=== PATIENT | female | born 1985 | race African-American/Black ===

== ENCOUNTER 2018-09-04 14:15 | Inpatient (IN) | payer MEDICAID ==
[~2018-09-04] VITALS: Ht 165.1 cm; Wt 134.7 kg
[2018-09-04 14:44] VITALS: BP 110/78
--- NOTE | 2018-09-04 16:21 | NUR ---
PT AMBULATED TO BED 2 IN NO APPEARENT DISTRESS.
--- NOTE | 2018-09-04 16:21 | NUR ---
PATIENT AMBULATED TO BED 2 AT THIS TIME.
--- NOTE | 2018-09-04 16:25 | NUR ---
32 YO F BIB BY SELF AMBULATORY WITH STEADY GATE. PT STATES TO HAVE ACHES TO LEGS, HIPS AND ARMS. PT STATES TO HAVE SICKLE CELL. PT STATES TO BE FROM [facility] VISITING FAMILY SHE GOT HER THURSDAY VIA AIRPLANE. JAMIL N/V/D. ER ME MADE AWARE OF PT STATUS. GALLBLADDER REMOVED 2006, APPENDECTOMY 2008, SPLEENECTOMY 2010, HISTORECTOMY 2012. PT STATES TO HAVE A DVT IN L LEG. HX: SICKLE CELL RX: LOVENOX, SEROQUEL, WARFRIN, DILAUDID, PERCOCET
[2018-09-04] MEDS ORDERED: ALBUTEROL SULFATE/IPRATROPIU 3 ML SOL IH ONE (16:45)
[2018-09-04] MEDS ORDERED: diphenhydrAMINE 50 MG/ML VIAL IVP ONE ×4 (16:45→21:55)
[2018-09-04] MEDS ORDERED: HYDROmorphone 1 MG/ML AMP IVP ONE ×4 (16:45→21:55)
--- NOTE | 2018-09-04 17:40 | NUR ---
LAB WAS CALLED THAT BLOOD WORK IS READY AND AT BEDSIDE.
[2018-09-04 17:49] LABS: BASOPHILS % (AUTO) 0.8 % (0.0-2.0); EOSINOPHILS % (AUTO) 0.9 % (0.0-4.0); HEMATOCRIT 27.3 % (36-48); HEMOGLOBIN 8.4 g/dL (12.0-16.0); LYMPHOCYTES # (AUTO) 1.7 K/uL (2.5-16.5); LYMPHOCYTES % (AUTO) 32.7 % (20.5-51.1); MEAN CORPUSCULAR HEMOGLOBIN 20 pg (27-31); MEAN CORPUSCULAR HGB CONC 31 g/dL (33-37); MEAN CORPUSCULAR VOLUME 63.4 fL (80-94); MONOCYTES # (AUTO) 0.3 K/uL (0.8-1.0); MONOCYTES % (AUTO) 6.2 % (1.7-9.3); NEUTROPHILS # (AUTO) 3.1 K/uL (1.8-7.7); NEUTROPHILS % (AUTO) 59.4 % (42.2-75.2); PLATELET COUNT (AUTO) 377 K/uL (140-450); RED BLOOD CELL COUNT(AUTO) 4.31 MIL/uL (4.20-5.40); RED CELL DISTRIBUTION WIDTH 19.1 % (11.6-13.7); WHITE BLOOD COUNT (AUTO) 5.3 K/uL (4.8-10.8)
[2018-09-04 18:06] LABS: CARBON DIOXIDE 23.3 mmol/L (21-32); CREATININE 0.6 mg/dL (0.6-1.3); POTASSIUM 3.3 mmol/L (3.5-5.1)
[2018-09-04 18:10] LABS: PROTHROMBIN TIME 10.8 secs (10.8-13.4)
[2018-09-04 18:12] LABS: ALBUMIN 3.5 g/dL (3.4-5.0); TOTAL BILIRUBIN 0.4 mg/dL (0.0-1.0)
[2018-09-04] MEDS ORDERED: HYDROmorphone 1 MG/ML AMP ONE (19:03)
--- NOTE | 2018-09-04 19:15 | NUR ---
PT SITTING UP IN BED, PAIN LEVEL 10. REQUESTING MORE PAIN MEDICATION ER MD MADE KNOWN.
[2018-09-04] MEDS ORDERED: KETOROLAC 30 MG/ML VIAL IVP ONE (20:00)
--- NOTE | 2018-09-04 20:09 | NUR ---
Dr. Hernandez evaluating patient at bedside.
--- NOTE | 2018-09-04 20:15 | NUR ---
PT REQUUESTING PAIN MEDICATION. PAIN LEVEL 10/10. ER MD MADE KNOWN.
[2018-09-04] MEDS ORDERED: MORPHINE SULFATE 4 MG/ML SYR IVP ONE (20:35)
--- NOTE | 2018-09-04 20:51 | NUR ---
RADIOLOGY MADE AWARE PT READY FOR CT PER DR. ELLIS
--- NOTE | 2018-09-04 21:08 | NUR ---
CHAINSTITCH ZIPPER SETTER AT BEDSIDE
--- NOTE | 2018-09-04 21:08 | NUR ---
PT TAKEN TO CT
[2018-09-04] MEDS ORDERED: ZOLPIDEM 5 MG TAB PO PRN (21:40)
[2018-09-04] MEDS ORDERED: NITROGLYCERIN 0.4 MG TAB SL PRN (21:40)
[2018-09-04] MEDS ORDERED: LORazepam 2 MG/ML VIAL IM/IVP PRN (21:40)
[2018-09-04] MEDS ORDERED: ACETAMINOPHEN 325 MG TAB PO PRN (21:40)
[2018-09-04] MEDS ORDERED: DOCUSATE SODIUM 100 MG GELCAP PO PRN (21:40)
[2018-09-04] MEDS ORDERED: ONDANSETRON 4 MG/2 ML VIAL IM/IVP PRN (21:40)
[2018-09-04] MEDS ORDERED: MORPHINE SULFATE 2 MG/ML SYR IVP PRN (21:40)
--- NOTE | 2018-09-04 21:45 | NUR ---
PT REQUESTED FOOD, SANDWICH ORDERED, PENDING ADMIT. VITALS STABLE.
[2018-09-04] MEDS ORDERED: ALBUTEROL SULFATE/IPRATROPIU 3 ML SOL IH PRN (21:50)
[2018-09-04] MEDS ORDERED: HYDR500C PO (22:16)
[2018-09-04] MEDS ORDERED: HYDR4TAB6 PO (22:16)
[2018-09-04] MEDS ORDERED: FOLI1TAB90 PO (22:16)
[2018-09-04] MEDS ORDERED: ACET-5636 PO (22:16)
[2018-09-04] MEDS ORDERED: BEN50 PO (22:16)
[2018-09-04] MEDS ORDERED: WARF-18 PO (22:16)
[2018-09-04] MEDS ORDERED: LOV40I SUBQ (22:16)
[2018-09-04] MEDS ORDERED: QUET50TA PO (22:16)
[2018-09-04] MEDS ORDERED: NON-FORMULARY ITEM (Oxycodone HCl/Acetaminophen (Percocet 10-325 mg Tablet) 1 TAB) PO SCH (22:20)
[2018-09-04] MEDS ORDERED: HYDROMORPHONE HCL PO SCH (22:20)
--- NOTE | 2018-09-04 22:25 | NUR ---
ADMITTED PT FROM ER VIA MATTI. AAOX4. NO C/O PAIN AT THIS TIME. NO RESP DISTRESS NOTED. ON O2 AT 2L/MIN VIA NC. PT IS AMBULATORY. SKIN INTACT. IV TO RIGHT AC#20G AND RIGHT SHOULDER #20G, PATENT AND INTACT. ORIENTED PT TO ROOM. DISCUSSED PLAN OF CARE, PT VERBALIZED UNDERSTANDING. CALL LIGHT WITHIN REACH.
--- NOTE | 2018-09-04 22:25 | NUR ---
Pt report given to RICK ANGELES. Transfer of care at this time.VITALS STABLE.
--- NOTE | 2018-09-04 22:25 | NUR ---
Patient will be admitted to care of DR. KAISER. Admited to TELEMETRY. Will go to room 124A. Belongings list completed. Report to RICK ANGELES.VITALS STABLE.
[2018-09-04 22:45] LABS: CHOL/HDL RATIO 3.6 (1-4.5); MAGNESIUM 1.9 mg/dL (1.8-2.4); PHOSPHORUS 3.4 mg/dL (2.5-4.9); THYROID STIMULATING HORMONE 0.29 uIU/mL (0.34-3.74)
[2018-09-04 23:00] VITALS: BP 121/77
[2018-09-04] MEDS: NACL 0.9% 1,000 ML IV SCH (23:00)
[2018-09-04] MEDS ORDERED: HYDROmorphone 1 MG/ML AMP IVP SCH (23:00)
[2018-09-04] MEDS ORDERED: HYDROmorphone 2 MG TAB PO PRN ×2 (23:10→23:15)
[2018-09-04] MEDS ORDERED: QUEtiapine FUMARATE 25 MG TAB PO SCH (23:30)
[2018-09-04] MEDS ORDERED: POTASSIUM CHLORIDE 10 MEQ TABER PO SCH (23:30)
--- NOTE | 2018-09-04 23:30 | NUR ---
PT ASKED FOR SNACK. SNACK PROVIDED. ALL NEEDS MET AT THIS TIME. CALL LIGHT WITHIN REACH.
[2018-09-05] VITALS: BP 126/78
--- NOTE | 2018-09-05 00:15 | NUR ---
PT RESTING IN BED. REMINDED PT TO CALL NURSE/ME WHEN SHE WANTS TO GO TO THE RESTROOM BEC WE NEED URINE SAMPLE FOR URINALYSIS PROFILE. PT VERBALIZED UNDERSTANDING.
--- NOTE | 2018-09-05 01:20 | NUR ---
CALLED RADIOLOGY FOR PT'S VENOUS US [facility]ADA. LOWER EXT. SPOKE WITH RIKA. PER RIKA, IF ULTRASOUND ORDER IS ROUTINE, TECH WILL DO IT TOMORROW MORNING. DR. CROCKER MADE AWARE AND SHE SAID IT'S OKAY.
--- NOTE | 2018-09-05 01:38 | NUR ---
PT REFUSED BLOOD DRAW FOR TROPONIN. PT STATED SHE WANTED TO SLEEP. DR. CROCKER MADE AWARE.
--- NOTE | 2018-09-05 03:50 | NUR ---
PT SLEEPING BUT EASILY AROUSABLE. NO S/S OF PAIN OR SOB. CALL LIGHT WITHIN REACH.
[2018-09-05 04:00] VITALS: BP 114/60
--- NOTE | 2018-09-05 04:35 | NUR ---
PT REFUSED EKG, TOLD ME TO COME BACK, BECAUSE SHE NEEDS TO GO TO BATHROOM
[2018-09-05] MEDS ORDERED: HYDROmorphone 1 MG/ML AMP IVP ONE (05:00)
--- NOTE | 2018-09-05 05:20 | NUR ---
PT REFUSED AGAIN, SHE WANTS ME TO LEAVE THE ROOM, RN NOTIFIED
[2018-09-05] MEDS ORDERED: ALBUTEROL SULFATE/IPRATROPIU 3 ML SOL IH SCH (06:00)
--- NOTE | 2018-09-05 06:30 | NUR ---
PT C/O PAIN 04/13. DILAUDID 0.5 MG GIVEN ORDERED.
[2018-09-05] MEDS ORDERED: HYDROmorphone 1 MG/ML AMP ONE (06:33)
--- NOTE | 2018-09-05 07:15 | NUR ---
ENDORSED PT TO DAY SHIFT NURSE. PT IN STABLE CONDITION.
--- NOTE | 2018-09-05 07:20 | NUR ---
PT REPORT RECEIVED AT BEDSIDE FROM NIGHT NURSE. PT IS RECEIVING A BREATHING TX AT THIS TIME. PT IS ALERT AND AWAKE, NO S/S OF DISTRESS OR SOB NOTED. NO C/O CHEST PAIN AT THIS TIME. PT IS ON 2L O2 NC. SKIN IS INTACT. IV SITES NOTED ON R AC AND R SHOULDER, BOTH 20 GAUGE. 0.9% NS INFUSING AT 60 ML/HR. PT IS AMBULATORY. CALL LIGHT WITHIN REACH, WILL CONTINUE TO MONITOR.
[2018-09-05 07:28] LABS: EOSINOPHILS # (AUTO) 0.1 K/uL (0-0.4); EOSINOPHILS % (AUTO) 2.4 % (0.0-4.0); HEMATOCRIT 28.3 % (36-48); HEMOGLOBIN 8.7 g/dL (12.0-16.0); LYMPHOCYTES # (AUTO) 1.4 K/uL (2.5-16.5); LYMPHOCYTES % (AUTO) 32.3 % (20.5-51.1); MEAN CORPUSCULAR HEMOGLOBIN 20 pg (27-31); MEAN CORPUSCULAR HGB CONC 31 g/dL (33-37); MEAN CORPUSCULAR VOLUME 64.3 fL (80-94); MONOCYTES # (AUTO) 0.3 K/uL (0.8-1.0); MONOCYTES % (AUTO) 7.1 % (1.7-9.3); NEUTROPHILS # (AUTO) 2.4 K/uL (1.8-7.7); NEUTROPHILS % (AUTO) 57.2 % (42.2-75.2); PLATELET COUNT (AUTO) 355 K/uL (140-450); RED CELL DISTRIBUTION WIDTH 18.8 % (11.6-13.7); WHITE BLOOD COUNT (AUTO) 4.3 K/uL (4.8-10.8)
[2018-09-05 07:57] LABS: PROTHROMBIN TIME 10.1 secs (10.8-13.4)
[2018-09-05 08:00] VITALS: BP 115/64
[2018-09-05 08:26] LABS: ANION GAP 10.9 (8-16); CARBON DIOXIDE 26.4 mmol/L (21-32); MAGNESIUM 1.9 mg/dL (1.8-2.4); PHOSPHORUS 4.2 mg/dL (2.5-4.9); POTASSIUM 3.3 mmol/L (3.5-5.1)
[2018-09-05 08:27] LABS: CREATININE 0.6 mg/dL (0.6-1.3)
[2018-09-05] MEDS: LISINOPRIL 5 MG TAB PO SCH (09:00)
[2018-09-05] MEDS: ENOXAPARIN 120 MG/0.8 ML SYR SUBQ SCH ×2 (09:00→21:13)
[2018-09-05] MEDS: ENOXAPARIN 30 MG/0.3 ML SYR SUBQ SCH ×2 (09:00→21:14)
[2018-09-05] MEDS ORDERED: NON-FORMULARY ITEM (Folic Acid 1 MG) PO SCH (09:00)
[2018-09-05] MEDS: METOPROLOL 25 MG TAB PO SCH ×2 (09:00→21:15)
[2018-09-05] MEDS ORDERED: ENOXAPARIN 40 MG/0.4 ML SYR SUBQ SCH (09:00)
[2018-09-05] MEDS: FOLIC ACID 1 MG TAB PO SCH (09:50)
[2018-09-05] MEDS: PANTOPRAZOLE 40 MG TABEC PO SCH (09:51)
[2018-09-05] MEDS: ASCORBIC ACID 500 MG TAB PO SCH (09:51)
[2018-09-05] MEDS: HYDROXYUREA 500 MG CAP PO SCH ×3 (09:51→16:33)
[2018-09-05] MEDS: FERROUS SULFATE 325 MG TABEC PO SCH (09:51)
[2018-09-05] MEDS: ASPIRIN 81 MG TAB.CHEW PO SCH (09:58)
--- NOTE | 2018-09-05 11:15 | NUR ---
PT IS ALSEEP IN BED, NO S/S OF DISTRESS OR SOB NOTED, NO C/O CHEST PAIN. PT IS ON ROOM AIR AT THIS TIME SATTING 98%. CALL LIGHT WITHIN REACH. WILL CONTINUE TO MONITOR.
--- NOTE | 2018-09-05 11:45 | NUR ---
PATIENT HAS BEEN SCREENED AND CATEGORIZED HIGH NUTRITION RISK. PATIENT WILL BE SEEN WITHIN 1-2 DAYS OF ADMISSION. 09/05/18 09/06/18 NIYAH DIXON MBA, RD
[2018-09-05 12:00] VITALS: BP 117/73
[2018-09-05] MEDS ORDERED: POTASSIUM CHLORIDE 10 MEQ TABER PO SCH (13:00)
[2018-09-05] MEDS: ALBUTEROL SULFATE/IPRATROPIU 3 ML SOL IH SCH ×2 (13:36→19:29)
[2018-09-05] MEDS: HYDROcodone/APAP 5/325 MG 1 TAB TAB PO PRN ×2 (13:53→19:47)
[2018-09-05] MEDS: NACL 0.9% 1,000 ML IV SCH (14:17)
--- NOTE | 2018-09-05 14:45 | NUR ---
PT IS REFUSING THE BILATERAL LE ULTRASOUND, TELLING US TECH TO COME BACK LATER. THIS IS THE SECOND TIME SHE HAS REFUSED IT. US TECH WILL TRY AGAIN LATER.
[2018-09-05 16:00] VITALS: BP 112/70
[2018-09-05] MEDS ORDERED: WARFARIN 5 MG TAB PO SCH (17:00)
--- NOTE | 2018-09-05 19:00 | NUR ---
PT HAVING BLE ULTRASOUND AT THIS TIME.
--- NOTE | 2018-09-05 19:15 | NUR ---
REPORT GIVEN AT BEDSIDE TO POTATO SORTER NURSE. PT ENDORSED IN STABLE CONDITION.
--- NOTE | 2018-09-05 19:16 | NUR ---
RECEIVED REPORT FROM DAY SHIFT NURSE. PT IN BED, AAOX4. PT HAVING BLE ULTRASOUND AT THIS TIME. NO C/O PAIN OR SOB. IV TO RIGHT SHOULDER, PATENT AND INTACT. SAFETY PRECAUTION IN PLACE. CALL LIGHT WITHIN REACH.
--- NOTE | 2018-09-05 19:47 | NUR ---
PT C/O LEG PAIN 03/14. NORCO 5/325 MG GIVEN.
[2018-09-05 20:00] VITALS: BP 121/64
[2018-09-05] MEDS ORDERED: KETOROLAC 30 MG/ML VIAL IVP PRN (20:25)
[2018-09-05] MEDS ORDERED: ATORVASTATIN 20 MG TAB PO SCH (21:00)
[2018-09-05] MEDS ORDERED: QUEtiapine FUMARATE 25 MG TAB PO SCH ×2 (21:00)
--- NOTE | 2018-09-05 21:00 | NUR ---
DR. CROCKER MADE AWARE THAT LOVENOX WAS HELD THIS MORNING AND IF SHE WANTED ME TO GIVE IT OR NOT FOR TONIGHT'S DOSE. PER MD, GIVE LOVENOX 150 MG SUBQ DUE AT 2100 .
--- NOTE | 2018-09-05 21:22 | NUR ---
PT STILL COMPLAINING OF PAIN. DR. CROCKER MADE AWARE. ORDERED TO GIVE MORPHINE 1 MG IVP.
--- NOTE | 2018-09-05 23:30 | NUR ---
PT LYING IN BED, WATCHING ON HER CELLPHONE. NO C/O PAIN. ALL NEEDS MET AT THIS TIME. CALL LIGHT WITHIN REACH.
[2018-09-06] VITALS: BP 100/56
--- NOTE | 2018-09-06 01:03 | NUR ---
REMINDED PT TO COLLECT URINE FOR URINE TEST WHEN SHE WAS IN THE BATHROOM. PT SAID YES BUT WHEN SHE WENT OUT SHE SAID SHE FORGOT ABOUT IT. REMINDED PT TO COLLECT URINE NEXT TIME SHE GOES TO THE BATHROOM. PT VERBALIZED UNDERSTANDING.
--- NOTE | 2018-09-06 03:20 | NUR ---
PT SLEEPING BUT EASILY WAKES UP. RESP EVEN AND UNLABORED. NO S/S OF PAIN OR DISCOMFORT.
[2018-09-06 04:00] VITALS: BP 100/58
--- NOTE | 2018-09-06 05:45 | NUR ---
PT SLEEPING, EASILY AROUSABLE. NO S/S OF PAIN OR SOB. CALL LIGHT WITHIN REACH.
[2018-09-06] MEDS: NACL 0.9% 1,000 ML IV SCH (06:57)
[2018-09-06] MEDS: ALBUTEROL SULFATE/IPRATROPIU 3 ML SOL IH SCH ×4 (07:00→20:00)
--- NOTE | 2018-09-06 07:20 | NUR ---
ENDORSED PT TO DAY SHIFT NURSE. PT IN STABLE CONDITION.
--- NOTE | 2018-09-06 07:22 | NUR ---
REPORT RECEIVED FROM DANCE CHOREOGRAPHER NURSE, PT SLEEPING QUIETLY IN NAD, RESP EVEN UNLABORED ON RA, SKIN WARM DRY COLOR WNL FOR RACE, AROUSES EASILY BY VOICE, PLAN OF CARE REVIEWED, DENIES ANY IMMEDIATE NEEDS, WILL CONTINUE TO MONITOR.
--- NOTE | 2018-09-06 07:38 | NUR ---
PT STATES SHE DOES NOT WANT BREATHING TX AT THIS TIME AND WANTS TO EAT. WILL CHECK BACK AT A LATER TIME FOR ADMINISTRATION OF TX. PT NOT SOB AT THIS TIME. NO WHEEZING HEARD ON AUSCULTATION.
[2018-09-06 08:00] VITALS: BP 118/47
[2018-09-06] MEDS: METOPROLOL 25 MG TAB PO SCH (09:00)
[2018-09-06] MEDS: ASCORBIC ACID 500 MG TAB PO SCH (09:00)
[2018-09-06] MEDS: LISINOPRIL 5 MG TAB PO SCH (09:00)
[2018-09-06] MEDS: PANTOPRAZOLE 40 MG TABEC PO SCH (09:01)
[2018-09-06] MEDS: ASPIRIN 81 MG TAB.CHEW PO SCH (09:01)
[2018-09-06] MEDS: FOLIC ACID 1 MG TAB PO SCH (09:01)
[2018-09-06] MEDS: FERROUS SULFATE 325 MG TABEC PO SCH (09:01)
[2018-09-06] MEDS: HYDROcodone/APAP 5/325 MG 1 TAB TAB PO PRN ×3 (09:02→17:07)
--- NOTE | 2018-09-06 09:05 | NUR ---
DUE MEDS GIVEN PT NELLA PO WELL, PT DENIES ANY OTHER NEEDS, WILL CONTINUE TO MONITOR.
[2018-09-06 09:08] LABS: TRANSFERRIN 287 mg/dL (200-370)
[2018-09-06] MEDS: HYDROXYUREA 500 MG CAP PO SCH ×3 (10:11→17:07)
[2018-09-06] MEDS: ENOXAPARIN 120 MG/0.8 ML SYR SUBQ SCH (10:16)
[2018-09-06] MEDS: ENOXAPARIN 30 MG/0.3 ML SYR SUBQ SCH (10:17)
--- NOTE | 2018-09-06 12:36 | NUR ---
DUE MEDS GIVEN, PT CO PAIN, NORCO GIVEN. PT AGREES TO GETTING BLOOD DRAW DONE, WILL NOTIFY LAB
[2018-09-06 13:47] LABS: BASOPHILS # (AUTO) 0.1 K/uL (0.00-0.22); BASOPHILS % (AUTO) 1.5 % (0.0-2.0); EOSINOPHILS # (AUTO) 0.1 K/uL (0-0.4); EOSINOPHILS % (AUTO) 2.6 % (0.0-4.0); HEMATOCRIT 28.5 % (36-48); HEMOGLOBIN 8.7 g/dL (12.0-16.0); LYMPHOCYTES # (AUTO) 1.6 K/uL (2.5-16.5); LYMPHOCYTES % (AUTO) 40.5 % (20.5-51.1); MEAN CORPUSCULAR HEMOGLOBIN 20 pg (27-31); MEAN CORPUSCULAR HGB CONC 30 g/dL (33-37); MEAN CORPUSCULAR VOLUME 64.2 fL (80-94); MONOCYTES # (AUTO) 0.3 K/uL (0.8-1.0); MONOCYTES % (AUTO) 7.1 % (1.7-9.3); NEUTROPHILS # (AUTO) 1.9 K/uL (1.8-7.7); NEUTROPHILS % (AUTO) 48.3 % (42.2-75.2); PLATELET COUNT (AUTO) 339 K/uL (140-450); RED BLOOD CELL COUNT(AUTO) 4.45 MIL/uL (4.20-5.40); RED CELL DISTRIBUTION WIDTH 19.3 % (11.6-13.7)
[2018-09-06 14:17] LABS: ANION GAP 9.8 (8-16); CREATININE 0.8 mg/dL (0.6-1.3); POTASSIUM 3.8 mmol/L (3.5-5.1)
[2018-09-06 14:20] LABS: PROTHROMBIN TIME 10.4 secs (10.8-13.4)
[2018-09-06 15:01] LABS: MAGNESIUM 1.8 mg/dL (1.8-2.4)
[2018-09-06] MEDS ORDERED: WARFARIN 2.5 MG TAB PO SCH (15:57)
[2018-09-06 16:00] VITALS: BP 118/53
--- NOTE | 2018-09-06 17:13 | NUR ---
COUMADIN 7.5MG GIVEN ORDERED, INR 1.0 TODAY. PT NELLA WELL, NORCO GIVEN FOR LEG PAIN 5/10.
--- NOTE | 2018-09-06 17:30 | NUR ---
DISCHARGE INSTRUCTION GIVEN AND EXPLAINED TO PT, PT VERBALIZED FULL UNDERSTANDING, PT UP AMBULATING IN ROOM WITH STEADY GAIT, AWAITING FOR FAMILY TO PICK HER UP AFTER 1930. WILL CONTINUE TO MONITOR.
--- NOTE | 2018-09-06 18:45 | NUR ---
20 G IV DC'D, CATH TIP INTACT, BLEEDING CONTROLLED, PT NELLA WELL. PT FAMILY UNABLE TO NURSE INTERN PATIENT, ELECTRICAL ELECTRONICS TECHNICIAN TO GIVE HER TAXI VOUCHER.
--- NOTE | 2018-09-06 19:28 | NUR ---
REPORT GIVEN TO METAL FURNITURE ASSEMBLER NURSE, PT IN STABLE CONDITION.
--- NOTE | 2018-09-06 19:30 | NUR ---
RECEIVED BEDSIDE REPORT. PT A&OX4. NO DISTRESS NOTED. DENIES ANY PAIN. PT IS READY FOR DISCHARGE IV REMOVED, PT IS DRESSED AND HAS BELONGINGS READY. DISCHARGE INSTRUCTIONS WERE ALREADY GIVEN. STATES HER FRIEND CANNOT COME TO PICK HER UP AND WILL REQUIRE A CAP. WILL CALL [facility] FOR PT.
--- NOTE | 2018-09-06 19:35 | NUR ---
CALLED [employer]. COMMERCIAL GLAZIER FOR PT HAS BEEN ARRANGED.
[2018-09-06 20:00] VITALS: BP 130/78
--- NOTE | 2018-09-06 20:00 | NUR ---
PTS VITAL SIGNS ARE STABLE. DENIES ANY PAIN AT THIS TIME. ALL NEEDS MET. PT AWAITING FOR [facility]
--- NOTE | 2018-09-06 20:15 | NUR ---
PTS WITH IV CATH REMOVED. DISCHARGE INSTRUCTIONS GIVEN. HAS FOLLOW UP APPOINTMENT. PT IN STABLE CONDITION. GIFT SHOP ASSISTANT WALKED PT TO MAIN LOBBY TO CAP.
[2018-09-07 06:19] LABS: FOLIC ACID > 20.00 ng/mL (>3.0)
[2018-09-07 09:28] LABS: FERRITIN 9 ng/mL (15-150)
[2018-09-07] MEDS ORDERED: WARFARIN 5 MG TAB PO SCH (17:00)
== END 2018-09-06 08:15 | disposition home or self-care (01) | DRG 662 ==
LOC: MED 14:15 → MTU 21:39
PROVIDERS: ADMIT General Practice; ATTEND General Practice
DX: D57.00 Hb-SS disease with crisis, unspecified (principal); I26.99 Other pulmonary embolism without acute cor pulmonale; E66.01 Morbid (severe) obesity due to excess calories; M94.0 Chondrocostal junction syndrome [Tietze]; D50.9 Iron deficiency anemia, unspecified; E87.6 Hypokalemia; G47.00 Insomnia, unspecified; I10 Essential (primary) hypertension; E05.90 Thyrotoxicosis, unspecified without thyrotoxic crisis or storm; Z68.42 Body mass index [BMI] 45.0-49.9, adult; Z86.718 Personal history of other venous thrombosis and embolism; Z86.711 Personal history of pulmonary embolism; Z90.49 Acquired absence of other specified parts of digestive tract; Z90.710 Acquired absence of both cervix and uterus; Z79.01 Long term (current) use of anticoagulants; Z79.899 Other long term (current) drug therapy; Z88.8 Allergy status to other drugs, medicaments and biological substances
CPT/HCPCS: 36415; 36600; 71045; 71275; 80048; 80053; 82550; 82607; 82728; 82746; 82803; 83036; 83540; 83690; 83735; 84100; 84134; 84443; 84484; 84703; 85025; 85045; 85379; 85610; 85730; 86886; 86900; 86901; 87081; 87804; 93005; 93971; 94640; 96374; 96375; 96376; 99285; J1170; J1200; J1650; J2270; J7030; J7620; Q0092; Q9967